=== PATIENT | female | born 1955 | race Caucasian/White ===

== ENCOUNTER → 2019-04-22 14:41 | Outpatient (BNVA) | payer MEDICARE, BC, SELFPAY | PROVIDERS: Family Provider Registered Nurse; PCP Registered Nurse; Visit Provider Anesthesiology | DX: G89.29 Other chronic pain (principal); M54.40 Lumbago with sciatica, unspecified side; G50.0 Trigeminal neuralgia; Z79.891 Long term (current) use of opiate analgesic | CPT/HCPCS: 99214 ==

== ENCOUNTER → 2019-06-10 14:45 | Outpatient (BNVA) | payer MEDICARE, BC, SELFPAY | PROVIDERS: Family Provider Registered Nurse; PCP Registered Nurse; Visit Provider Anesthesiology | DX: G89.29 Other chronic pain (principal); M54.42 Lumbago with sciatica, left side; G50.0 Trigeminal neuralgia; R68.84 Jaw pain; M79.7 Fibromyalgia; Z79.891 Long term (current) use of opiate analgesic | CPT/HCPCS: 99214 ==

== ENCOUNTER 2019-08-27 11:56 | Outpatient (CLI) | payer MEDICARE, BC, SELFPAY ==
[2019-08-27 12:21] LABS: Basophils # 0.1 10^3/uL (0.0-0.1); Basophils % 0.7 %; Eosinophils # 0.1 10^3/uL (0.0-0.8); Hematocrit 43.9 % (37.0-47.0); Hemoglobin 13.6 g/dL (11.5-15.3); Lymphocytes # 1.5 10^3/uL (0.8-4.8); Lymphocytes % 22.4 %; Mean Corpuscular Hemoglobin 28.5 pg (28.0-34.0); Mean Platelet Volume 8.6 fL (7.4-10.4); Monocytes # 0.7 10^3/uL (0.2-0.9); Monocytes % 9.8 %; Neutrophils # 4.5 10^3/uL (1.8-7.7); Neutrophils % 65.5 %; Nucleated Red Blood Cells % 0 %; Platelet Count 299 10^3/cmm (130-400); Red Blood Count 4.77 10^6/uL (4.1-5.3); Red Cell Distribution Width 12.1 % (12.1-15.1); White Blood Count 6.8 10^3/uL (4.0-10.0)
[2019-08-27 12:34] LABS: Alanine Aminotransferase 19 U/L (0-33); Albumin Level 4.5 g/dL (3.5-5.2); Alkaline Phosphatase 86 IU/L (35-105); Anion Gap 16.1 (5-19); Aspartate Amino Transferase 19 U/L (0-32); Blood Urea Nitrogen 12 mg/dL (8-23); Carbon Dioxide 27 mmol/L (22-29); Chloride 100 mmol/L (98-107); Glomerular Filtration Rate 63.2 mL/min (90-130); Glucose 106 mg/dL (65-115); Osmolality Calculated 285 mOsm/kg (285-295); Potassium 4.1 mmol/L (3.5-5.1); Sodium 139 mmol/L (136-145); Total Bilirubin 0.2 mg/dL (0.15-1.2); Total Protein 7.5 g/dL (6.6-8.7)
--- NOTE | 2019-08-27 19:51 | ONC FU_ITS ---
Dr. Govea Patient Follow-Up Note Patient: Jackie Shane Unit #: [id number]: [id number] Dicatated By: Viral Govea M.D.Date of Visit:Aug 27, 2019 Onc Med Follow-up/Prog Note Chief Complaint: Breast cancer. History of Present Illness: This is a 64 year-old woman with grade 3 infiltrating ductal carcinoma the right breast, stage IIIA (T3, pN2, M0), ER/MT positive and HER-2/tasneem positive. She had presented with a large mass in the right breast. The initial biopsy showed grade 3 infiltrating ductal carcinoma. It was ER positive at 70% and MT positive at 63%. He was positive for overexpression of HER-2/tasneem, 3+ by IHC and with amplification ratio 7.27 by FISH. She underwent right modified radical mastectomy in May of 2010. The primary tumor measured 7.7 x 3.4 cm. There was involvement in 6 of 12 axillary lymph nodes. She was given adjuvant chemotherapy with TCH. She had completed the 6 cycles of Taxotere/carboplatin as of October 2010. She completed her full year of Herceptin as of June 2011. She was also given prophylactic chest wall radiation, which she completed in December of 2010 to a total dose of 6040 cGy. In addition, she had started hormonal therapy with anastrozole in July of 2010. She tolerated it poorly and stopped within a short time because of severe depression. She restarted hormonal therapy with Aromasin in July of 2011. She opted to stop taking it in July 2016 after completing 5 years of treatment. She has had persistent fatigue and chronic pain following the chemotherapy, but thus far during followup there has been no evidence of recurrence of the breast cancer. Her other medical illnesses include asthma, GERD, and depression. She is known to have a cerebral meningioma, with which has just been monitored with observation. She is seen for a scheduled visit. She has been feeling generally. She still has some fatigue. Her energy comes and goes. Her ECOG score is 1. Her appetite is good. She has gained weight. She has not had fever. She does have hot flashes and sweating at night. She has some discomfort related to her breast. She does not complain of shortness of breath or cough, and she otherwise has not had chest pain. She continues to have acid reflux despite taking Nexium and a low-dose of metoclopramide. She uses Gaviscon as needed. Her bowel function is adequate with her bowel regimen. She has no complaints. She still has pain, and overall her back has gotten worse, but it is still managed adequately with Percocet. She has headache occasionally and she occasionally has orthostatic lightheadedness. She has developed some neuralgia on the left side of her face. She has no other focal neurologic symptoms. Medications: Benadryl 1 (25 mg) Tablet Oral at bedtime PRN, Benefiber 1 Tablet Oral daily, busPIRone HCl 1 Tablet (of 15 mg) Oral PRN, Claritin 1 Capsule Oral daily, Cymbalta 1 Tablet (of 30 mg) Capsule Delayed Release Particles Oral b.i.d., Dramamine 1 Tablet (of 50 mg) Oral PRN, Famotidine 2 Tablet (of 20 mg) Oral at bedtime, Metoclopramide HCl 1 Tablet (of 5 mg) Oral b.i.d. PRN, MiraLax 1 Powder Oral daily, Mucinex 1 (600 mg) Tablet SR 12 HR Oral daily PRN, NexIUM 1 (20 mg) Capsule Delayed Release Oral daily, Norvasc 1 (10 mg) Tablet Oral daily, Percocet 1 Tablet (of 5-325 mg) Oral t.i.d., traZODone HCl 1 Tablet (of 50 mg) Oral at bedtime PRN Allergies: Penicillins Review of Systems: Constitutional - She is generally feeling really good. Her energy comes and goes. Her appetite is good and weight is up about 8 pounds from last visit. No fevers. She is having hot flashes with sweats mainly at night. ECOG score is 1, ENMT - No sinus congestion/drainage. No mouth sores. No sore throat or difficulty swallowing, Hematologic/Lymphatic - No abnormal bruising or bleeding, Respiratory - No shortness of breath. No cough. No pleuritic pain or hemoptysis, Cardiovascular - No angina pain. No palpitations, Gastrointestinal - No nausea or vomiting. She has persistent heartburn,which wakes her up in the middle of the night. She is taking Nexium and Gaviscon for this. No diarrhea. She has constipation. This is adequetely managed with her current over the counter regimen. No blood in the stool or black stools, Genitourinary (F) - No dysuria or hematuria. No urinary frequency. No urgency or incontinence, Musculoskeletal - She continues to have pain, but it is adequately managed with her current pain medication, Integumentary - No skin complications, Neurologic - She has occasional headaches. She has dizziness with positional changes. No numbness or tingling. No other focal neurologic symptoms, Psychiatric - She has anxiety, which is managed adequately with Buspar. No depression. She has difficulty falling asleep. Vital Signs: Performed on Aug 27, 2019 13:27 Height - 62.00 in Weight - 163.2 lbs (HIGH) BSA - 1.75 sq.m BMI - 29.85 Temperature - 98.3 F (LOW) Pulse - 103 /min (HIGH) Respiration - 20 /min BP - 125/70 mm(hg) O2 Sat - 97 % Pain - 0 Physical Examination: Constitutional - She looks pretty good generally, Eyes - Sclerae nonicteric. Conjunctivae clear, ENMT - There are no lesions noted in the oral cavity, Hematologic/Lymphatic - No cervical or clavicular adenopathy, Respiratory - Lungs are clear with good air movement bilaterally, Cardiovascular - Heart rhythm is regular. There is a II/ systolic murmur. There is no gallop or rub noted, Breasts - There are no lesions noted in the right chest wall. The left breast shows no mass. There is no axillary adenopathy, Abdomen - Soft. Liver and spleen are not enlarged. There is no abdominal mass or ascites noted and there is no inguinal adenopathy, Extremities - No edema. Dorsalis pedis pulses are palpable bilaterally, Neurologic - No focal neurologic deficits noted. Lab/Imaging: Test performed on Aug 27, 2019 12:07 Sodium 139 mmol/L Potassium 4.1 mmol/L Chloride 100 mmol/L CO2 27 mmol/L Anion Gap 16.1 BUN 12 mg/dL Creatinine 0.9 mg/dL Cr Clearance (Est) 74.77 mL/min eGFR 63.2 mL/min Glucose 106 mg/dL Calcium 10.0 mg/dL Protein, Total 7.5 g/dL Albumin 4.5 g/dL Globulin 3.0 g/dL Bilirubin, Total 0.2 mg/dL ALT (SGPT) 19 U/L AST (SGOT) 19 U/L Alkaline Phosphatase 86 IU/L WBC 6.8 10 3/uL RBC 4.77 10 6/uL HGB 13.6 g/dL HCT 43.9 % MCV 92.0 fL MCH 28.5 pg MCHC 31.0 g/dL RDW 12.1 % Platelet Count 299 10 3/cmm MPV 8.6 fL Neutrophils 4.5 10 3/uL Lymphocytes 1.5 10 3/uL Monocytes 0.7 10 3/uL Eosinophils 0.1 10 3/uL Basophils 0.1 10 3/uL Neutrophil % 65.5 % Lymphocyte % 22.4 % Monocyte % 9.8 % Eosinophil % 1.0 % Basophils % 0.7 % NRBC % 0 % Impression: 1. Patient with grade 3 infiltrating ductal carcinoma the right breast, stage IIIA, ER/MT positive and HER-2/tasneem positive. 2. She underwent right modified radical mastectomy in May 2010 followed by adjuvant chemotherapy with 6 cycles of TCH, completed in October 2010. She completed a full year of Herceptin in June 2011. 3. She was given prophylactic chest wall radiation, completed in December 2010 to a total dose of 6040 cGy. 4. She had poor tolerance for adjuvant hormonal therapy with anastrozole, which began in July 2010. 5. As of July 2011 she restarted hormonal therapy with Aromasin 25 mg daily. It was stopped in July 2016 after completing 5 years of treatment. She had multiple complaints following the chemotherapy, the most significant being persistent fatigue and neuropathy. During follow-up she has had some degree of chronic fatigue and chronic pain. Over time she has shown some gradual improvement, and her symptoms now do seem to be adequately managed with her current medications. Overall, she appears to be doing well clinically with no evidence of recurrence of the breast cancer. Plan: She remains on observation/expectant management for the breast cancer. I will see her again in 1 year. Signed By: Viral Govea M.D. <<Signature on File>>
== END 2019-08-27 11:57 | disposition home or self-care (01) ==
LOC: ONCMED 12:00
PROVIDERS: PCP Registered Nurse; Visit Provider Internal Medicine Medical Oncology
DX: Z08 Encounter for follow-up examination after completed treatment for malignant neoplasm (principal); Z85.3 Personal history of malignant neoplasm of breast; E55.9 Vitamin D deficiency, unspecified; Z79.890 Hormone replacement therapy; Z92.21 Personal history of antineoplastic chemotherapy; Z92.3 Personal history of irradiation
CPT/HCPCS: 36415; 80053; 85025; G0463

== ENCOUNTER 2019-09-02 13:59 | Outpatient (CLI) | payer MEDICARE, BC, SELFPAY ==
--- NOTE | 2019-09-02 14:10 | MM_ITS ---
WS: [id number] Left breast diagnostic digital mammogram, 09/02/2019 Clinical Data: HX OF BREAST CA Comparison: 03/14/2018, 03/09/2017, 03/03/2016, 03/14/2015, 01/26/2014, 01/23/2013, 12/29/2011, 2010, 05/31/2010, 03/04/2010. Findings: No spiculated masses or clustered calcifications are seen. There are no secondary signs of carcinoma. The breast parenchymal pattern shows heterogeneous density. MM/[place] [id number] Impression: Negative left breast mammogram unchanged. BIRADS: 1-Negative FOLLOW UP: 1 Year Follow-up The CAD broadcast checker was used.
== END 2019-09-02 14:00 | disposition home or self-care (01) ==
LOC: RADSHAW 14:07
PROVIDERS: PCP Registered Nurse; Visit Provider Internal Medicine Medical Oncology
DX: Z85.3 Personal history of malignant neoplasm of breast (principal)
CPT/HCPCS: 77065

== ENCOUNTER → 2019-10-10 10:28 | Outpatient (BNVA) | payer MEDICARE, BC, SELFPAY | PROVIDERS: Family Provider Registered Nurse; PCP Registered Nurse; Visit Provider Anesthesiology | DX: G89.29 Other chronic pain (principal); M54.42 Lumbago with sciatica, left side; Z79.891 Long term (current) use of opiate analgesic | CPT/HCPCS: 99213; 99214 ==

== ENCOUNTER → 2019-12-26 08:08 | Outpatient (BNVA) | payer MEDICARE, BC, SELFPAY | PROVIDERS: Family Provider Registered Nurse; PCP Registered Nurse; Visit Provider Anesthesiology | DX: G89.29 Other chronic pain (principal); M54.41 Lumbago with sciatica, right side; M54.42 Lumbago with sciatica, left side; Z79.891 Long term (current) use of opiate analgesic; Z79.1 Long term (current) use of non-steroidal anti-inflammatories (NSAID) | CPT/HCPCS: 99212; 99214 ==

== ENCOUNTER → 2020-02-19 10:55 | Outpatient (BNVA) | payer MEDICARE, BC, SELFPAY | PROVIDERS: Family Provider Registered Nurse; PCP Registered Nurse; Visit Provider Anesthesiology | DX: G89.29 Other chronic pain (principal); M54.41 Lumbago with sciatica, right side; M54.42 Lumbago with sciatica, left side; Z79.891 Long term (current) use of opiate analgesic; Z79.1 Long term (current) use of non-steroidal anti-inflammatories (NSAID) | CPT/HCPCS: 99212; 99214 ==

== ENCOUNTER → 2020-04-01 14:17 | Outpatient (BNVA) | payer MEDICARE, BC, SELFPAY | PROVIDERS: PCP Registered Nurse; Visit Provider Surgery | DX: Z11.59 Encounter for screening for other viral diseases (principal); Z12.11 Encounter for screening for malignant neoplasm of colon | CPT/HCPCS: 87635 ==

== ENCOUNTER 2020-04-08 07:00 | Day surgery (SDC) | payer MEDICARE, BC, SELFPAY ==
[2020-04-05 13:32] VITALS: BMI 29.2
--- NOTE | 2020-04-08 07:24 | ANES.PREANE2 ---
Pre-Anesthetic Assessment Pre-Anesthetic Assessment: Height/Weight: Height 1.57 m Weight 72.575 kg Preop Diagnosis: Screening colonoscopy Proposed Procedure: Operation Date: 04/08/20 08:00 Proposed Procedures p Colonoscopy 78029 Z12.11(Not Applicable) - Umesh Egan MD Was Beta Marcelino taken within 24 hours: N/A Last intake: Intake Last Liquid Date 04/07/20 Last Liquid Time 20:00 Last Solid Date 04/06/20 Last Solid Time 20:00 Social: Social History: No alcohol and No tobacco Exam: Pre-Anes Outpt Exam: alert, oriented x 3, clear to auscultation bilaterally and regular rate & rhythm Airway: Submandibular: WNL Cervical ROM: WNL Dentition: Full History/ROS: No significant history except as noted and No significant complaints Pulmonary: Pulmonary: None reported CV/HEM: CV/HEM: HTN : : None reported Hepatic: Hepatic: None reported GI: GI: GERD Metabolic: Metabolic: None reported Musc/skel: Musc/skel: Lower Back Pain and OA/DJD Neuropsych: Neuropsych: Anxiety and None reported Anesthetic Plan: ASA status: 2 Anesthesia: Anesthesia Evaluation and MAC Risk of > 500 ml blood loss (7ml/kg in children): No PFSH Anesthesia PFSH: Medical History (Updated 02/26/20 @ 08:21 by JAMES Victoria) Chronic low back pain with sciatica Depression with anxiety Encounter for long-term (current) use of NSAIDs Encounter for long-term use of opiate analgesic Encounter for screening colonoscopy GERD without esophagitis Insomnia Nondiabetic gastroparesis Trigeminal neuralgia of left side of face Surgical History S/P appendectomy S/P cholecystectomy S/P right mastectomy Social History Smoking and tobacco status: never smoked Second hand smoke exposure: Yes Alcohol intake: never History of recent travel: No Data Anesthesia Cardiac Studies: No Data to Display
--- NOTE | 2020-04-08 07:26 | W.PM.OPSFHP ---
Same Day Surgery H&P Indication for Procedure/HPI DATE OF PROCEDURE: April 08, 2020 CHIEF COMPLAINT/INDICATIONFOR SURGICAL PROCEDURE: Screening colonoscopy PREOP DIAGNOSIS: Screening colonoscopy PLANNED PROCEDRUE: Operation Date: 04/08/20 08:00 Proposed Procedures p Colonoscopy 93447 Z12.11(Not Applicable) - Umesh Egan MD This is a pleasant 64 years old female patient referred to my practice for screening colonoscopy. Patient had one before 10 years and was reported as normal.She denies any bleeding per rectum or nonintentional weight loss. Patient reports to me when I asked her that she had her grandmother had history of colon cancer around the age of 7070 years old. ROS All systems have been reviewed negative except for HPI and per problem list Medications/Allergies* Home Medications Medication Instructions Recorded Confirmed Type polyethylene glycol 3350 17 17 gm PO QDAY PRN 04/14/19 04/05/20 History gram/dose oral powder sennosides 8.6 mg-docusate sodium 3 tab-cap PO QDAY PRN 04/14/19 04/05/20 History 50 mg capsule famotidine 40 mg tablet 40 mg PO QDAY 04/16/19 04/05/20 History esomeprazole magnesium 20 mg 20 mg PO DAILY 01/12/20 04/05/20 History capsule,delayed release dimenhydrinate 50 mg tablet 50 mg PO .hs tab 02/25/20 04/05/20 History melatonin 3 mg tablet,extended 3 mg PO BEDTIME 02/25/20 04/05/20 History release Allergies/Adverse Reactions Allergy/AdvReac Type Severity Reaction Status Date / Time Penicillins Allergy Mild swelling Verified 04/08/20 07:27 and rash Pertinent History/Comorbid Conditions* Medical History (Updated 02/26/20 @ 08:21 by JAMES Victoria) Chronic low back pain with sciatica Depression with anxiety Encounter for long-term (current) use of NSAIDs Encounter for long-term use of opiate analgesic Encounter for screening colonoscopy GERD without esophagitis Insomnia Nondiabetic gastroparesis Trigeminal neuralgia of left side of face Surgical History (Updated 04/22/19 @ 16:24 by Klever Lam MD) S/P appendectomy S/P cholecystectomy S/P right mastectomy Social History Smoking and tobacco status: never smoked Second hand smoke exposure: Yes Alcohol intake: never History of recent travel: No Pertinent Exam Findings alert, oriented x 3, clear to auscultation bilaterally, regular rate & rhythm and procedure specific exam findings (Abdominal examination nontender nondistended soft) Recommendations Surgery/Procedure today (Colonoscopy with possible biopsy and possible polypectomy. Informed consent per chart) Coding Level of Care Code Acute Chief Operator for Jessica Kelley
[2020-04-08 07:27] VITALS: BP 122/90; PULSE 99; RESP 18; TEMP 36.6; O2SAT 95
[2020-04-08] MEDS: sodium chloride 0.9% 1,000 ML 30 ML IV (07:33)
[2020-04-08 08:12] VITALS: BP 127/74; PULSE 75; RESP 16; TEMP 36.6; O2SAT 95
[2020-04-08 08:31] VITALS: BP 127/85; PULSE 79; RESP 16; O2SAT 95
--- NOTE | 2020-04-08 14:45 | ANE.PACU2 ---
Inpatient post-anesthesia follow up: Airway intact: Yes Vital signs: Temperature 98 F Pulse Rate 79 Respiratory Rate 16 Blood Pressure 127/85 Pulse Oximetry 95 Oxygen Delivery Me thod Room Air Oxygen Flow Rate Fraction of Inspir ed Oxygen Hydration adequate: Yes Nausea and vomiting: No Pain level: 1 Mental status: Baseline
== END 2020-04-08 08:36 | disposition home or self-care (01) ==
PROVIDERS: PCP Registered Nurse; Visit Provider Surgery
PROC: 0DJD8ZZ Inspection of Lower Intestinal Tract, Via Natural or Artificial Opening Endoscopic (ICD-10-PCS; CPT 45378; principal; 2020-04-08 08:00)
DX: Z12.11 Encounter for screening for malignant neoplasm of colon (principal); K57.30 Diverticulosis of large intestine without perforation or abscess without bleeding; F41.8 Other specified anxiety disorders; K21.9 Gastro-esophageal reflux disease without esophagitis; Z79.1 Long term (current) use of non-steroidal anti-inflammatories (NSAID); Z79.891 Long term (current) use of opiate analgesic; G89.29 Other chronic pain; M54.5 Low back pain; I10 Essential (primary) hypertension; M19.90 Unspecified osteoarthritis, unspecified site
CPT/HCPCS: 12345; G0121; J2704; J7030

== ENCOUNTER → 2020-04-23 10:53 | Outpatient (BNVA) | payer MEDICARE, BC, SELFPAY | PROVIDERS: PCP Registered Nurse; Visit Provider Anesthesiology | DX: G89.29 Other chronic pain (principal); M54.41 Lumbago with sciatica, right side; R68.84 Jaw pain; G50.0 Trigeminal neuralgia; Z79.1 Long term (current) use of non-steroidal anti-inflammatories (NSAID); Z79.891 Long term (current) use of opiate analgesic | CPT/HCPCS: 99213 ==

== ENCOUNTER → 2020-04-30 10:17 | Outpatient (BNVA) | payer MEDICARE, BC, SELFPAY | PROVIDERS: PCP Registered Nurse; Visit Provider Anesthesiology | DX: Z79.1 Long term (current) use of non-steroidal anti-inflammatories (NSAID) (principal); K31.84 Gastroparesis; K21.9 Gastro-esophageal reflux disease without esophagitis | CPT/HCPCS: 80048 ==

== ENCOUNTER → 2020-07-07 10:46 | Outpatient (BNVA) | payer MEDICARE, BC, SELFPAY | PROVIDERS: PCP Registered Nurse; Visit Provider Nurse Practitioner | DX: G89.29 Other chronic pain (principal); M54.41 Lumbago with sciatica, right side; M54.42 Lumbago with sciatica, left side; D18.02 Hemangioma of intracranial structures; G50.0 Trigeminal neuralgia; Z79.1 Long term (current) use of non-steroidal anti-inflammatories (NSAID); Z79.891 Long term (current) use of opiate analgesic | CPT/HCPCS: 99214 ==

== ENCOUNTER 2020-07-19 12:59 | Outpatient (CLI) | payer MEDICARE, BC, SELFPAY ==
--- NOTE | 2020-07-19 13:00 | MR_ITS ---
WS: [id number] MRI LUMBAR SPINE NONCONTRAST TECHNIQUE: Sagittal T1, T2 and STIR imaging. Axial T1 and T2 imaging. CLINICAL INFORMATION: M54.40 - Lumbago with sciatica, unspecified side COMPARISON: MRI 2016 FINDINGS: Mild lumbar curve. No acute compression. No high-grade central canal stenosis. Slight anterolisthesis L4 on L5 is unchanged. Mild annular bulging L3-L4 and L4-L5. L1-L2: Normal. L2-L3: No significant disc bulging. Mild facet arthropathy. Spinal canal and foramen are patent. L3-L4: Mild annular bulging with slight effacement of ventral thecal sac. Slight narrowing of the rig ht subarticular recess. Foramen are patent. Mild facet arthropathy. L4-L5: Mild annular bulging with mild central canal stenosis. Narrowing of the subarticular recess bi laterally. Encroachment traversing L5 nerve roots. Moderate facet arthropathy. Foramen are patent. L5-S1: Tiny shallow central herniation. Spinal canal and foramen are patent. Moderate facet arthropat hy. Visualized pelvic bony structures: Normal. Paravertebral soft tissues: Normal. MR/MR lumbar spine wo con* [id number] IMPRESSION: 1. Mild lumbar curve. No acute compression. Stable slight anterolisthesis L4 o n L5. 2. Mild annular bulging L4-5 with mild central canal stenosis. Slight impingem ent traversing L5 nerve roots bilaterally. This is stable compared to 2017. 3. Mild annular bulging L3-4 with slight narrowing of the subarticular recess. Spinal canal and foramen are patent. 4. Moderate facet arthropathy L4-L5 and L5-S1. 5. Overall no significant changes since 2017.
--- NOTE | 2020-07-19 13:45 | MR_ITS ---
WS: [id number] MRI HEAD WITHOUT CONTRAST TECHNIQUE: Sagittal T1, T2 axial, T2 axial FLAIR, axial and coronal T1 images, axial susceptibility w eighted imaging, axial diffusion weighted images, and coronal T2 images were obtained. 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 Ventricular system and basal cisterns are patent. Moderate small vessel changes with mild parenchymal volume loss. Small vessel changes in the marcy. Normal posterior fossa. Normal vascular flow voids at the skull base. No extra-axial fluid collections. Paranasal sinuses and mastoid air cells well aerated. Normal optic chiasm and pituitary infundibulum. Mild symmetric atrophy involving the temporal lobes a nd hippocampal formations. Normal cavernous sinuses and Meckel's cave. No hemosiderin on susceptibly weighted images. Stable calcified right parasagittal occipital meningio ma appears unchanged considering lack of IV contrast. No underlying edema. Meningioma measures approx imately 14 x 12 mm not significantly changed. Associated adjacent narrowing of the sagittal sinus christian ears stable compared to previous MR/MR head wo con* [id number] IMPRESSION: 1. Stable right parasagittal occipital calcified meningioma with stable adjace nt narrowing of the sagittal sinus. No underlying edema in the occipital lobe. No evidence of progression 2. No evidence of restricted diffusion to suggest acute ischemia. 3. Moderate small vessel changes with mild parenchymal volume loss. Small vess el changes slightly progressed since 2010. 4. No hemosiderin on susceptibly weighted images. 5. No other significant changes compared to previous.
== END 2020-07-19 13:00 | disposition home or self-care (01) ==
PROVIDERS: PCP Registered Nurse; Visit Provider Nurse Practitioner
DX: D18.02 Hemangioma of intracranial structures (principal); M54.40 Lumbago with sciatica, unspecified side; M47.816 Spondylosis without myelopathy or radiculopathy, lumbar region; M47.817 Spondylosis without myelopathy or radiculopathy, lumbosacral region; M51.26 Other intervertebral disc displacement, lumbar region
CPT/HCPCS: 70551; 72148

== ENCOUNTER → 2020-07-29 14:42 | Outpatient (BNVA) | payer MEDICARE, BC, SELFPAY | PROVIDERS: PCP Registered Nurse; Visit Provider Registered Nurse | DX: Z01.419 Encounter for gynecological examination (general) (routine) without abnormal findings (principal); R30.0 Dysuria | CPT/HCPCS: 81000; 87070; 87205; 88175 ==

== ENCOUNTER → 2020-09-02 13:48 | Outpatient (BNVA) | payer MEDICARE, BC, SELFPAY | PROVIDERS: PCP Registered Nurse; Visit Provider Nurse Practitioner | DX: G89.29 Other chronic pain (principal); M54.41 Lumbago with sciatica, right side; G50.0 Trigeminal neuralgia; Z79.1 Long term (current) use of non-steroidal anti-inflammatories (NSAID); Z79.891 Long term (current) use of opiate analgesic | CPT/HCPCS: 99215 ==

== ENCOUNTER → 2020-11-10 12:30 | Outpatient (BNVA) | payer MEDICARE, BC, SELFPAY | PROVIDERS: PCP Registered Nurse; Visit Provider Anesthesiology | DX: G89.29 Other chronic pain (principal); M54.42 Lumbago with sciatica, left side; M54.41 Lumbago with sciatica, right side; Z79.1 Long term (current) use of non-steroidal anti-inflammatories (NSAID); Z79.891 Long term (current) use of opiate analgesic | CPT/HCPCS: 99213 ==

== ENCOUNTER 2020-11-17 10:46 | Outpatient (CLI) | payer MEDICARE, BC, SELFPAY ==
--- NOTE | 2020-11-17 10:52 | MM_ITS ---
WS: [id number] DIAGNOSTIC LEFT DIGITAL MAMMOGRAM WITH CAD HISTORY: HX OF BREAST Ca; rt MASTECTOMY COMPARISON: 09/02/2019, 03/09/2017 Technique: CC, MLO and ML views. Breast composition: The breasts are heterogeneously dense, which may obscure small masses. Increasin g density and asymmetry in the superior posterior LEFT breast. This may be superimposed fibroglandula r tissue. Additional benign calcifications. MM/[place] [id number] IMPRESSION: BI-RADS: 0-Incomplete: Need additional imaging evaluation FOLLOW UP: Need Additional Imaging LEFT breast: Spot compression views (CC and MLO). True ML. Ultrasound to follow if abnormality persists.
== END 2020-11-17 10:47 | disposition home or self-care (01) ==
LOC: RADSHAW 10:50
PROVIDERS: PCP Registered Nurse; Visit Provider Internal Medicine Medical Oncology
DX: Z85.3 Personal history of malignant neoplasm of breast (principal)
CPT/HCPCS: 77065

== ENCOUNTER 2020-11-25 14:40 | Outpatient (CLI) | payer MEDICARE, BC, SELFPAY ==
--- NOTE | 2020-11-25 14:50 | US_ITS ---
WS: [id number] ADDITIONAL VIEWS LEFT MAMMOGRAM LEFT BREAST ULTRASOUND HISTORY: ABNORMAL FINDINGS IN LT BREAST COMPARISON: 11/17/2020, 09/02/2019 and 07/13/2017 LEFT MAMMOGRAM: Spot compression views and true ML. Dense asymmetry persists in the superior LEFT breast. No discrete mass identified. Ultrasound will be performed to exclude underlying mass. This may all be superimposed fibroglandular tissue. LEFT BREAST ULTRASOUND 2-D and color Doppler imaging submitted. Ultrasound directed to the upper outer quadrant of the LEFT breast. No discrete mass or shadowing. No solid or cystic changes. There is very dense fibroglandular tissue which is a normal parenchymal pat tern. US/US breast LT limited* [id number] IMPRESSION: BI-RADS: 2-Benign FOLLOW UP: 1 Year Follow-up
== END 2020-11-25 14:41 | disposition home or self-care (01) ==
PROVIDERS: PCP Registered Nurse; Visit Provider Internal Medicine Medical Oncology
DX: R92.8 Other abnormal and inconclusive findings on diagnostic imaging of breast (principal)
CPT/HCPCS: 76642; 77065

== ENCOUNTER 2020-12-20 14:19 | Outpatient (CLI) | payer MEDICARE, BC, SELFPAY ==
--- NOTE | 2020-12-20 19:23 | ONC FU_ITS ---
Dr. Govea Patient Follow-Up Note Patient: Jackie Shane Unit #: [id number]: 1955 Dicatated By: Viral Govea M.D.Date of Visit:Dec 20, 2020 Onc Med Follow-up/Prog Note Chief Complaint: Breast cancer. History of Present Illness: This is a 65 year-old woman with grade 3 infiltrating ductal carcinoma the right breast, stage IIIA (T3, pN2, M0), ER/KS positive and HER-2/tasneem positive. She had presented with a large mass in the right breast. The initial biopsy showed grade 3 infiltrating ductal carcinoma. It was ER positive at 70% and KS positive at 63%. He was positive for overexpression of HER-2/tasneem, 3+ by IHC and with amplification ratio 7.27 by FISH. She underwent right modified radical mastectomy in May of 2010. The primary tumor measured 7.7 x 3.4 cm. There was involvement in 6 of 12 axillary lymph nodes. She was given adjuvant chemotherapy with TCH. She had completed the 6 cycles of Taxotere/carboplatin as of October 2010. She completed her full year of Herceptin as of June 2011. She was also given prophylactic chest wall radiation, which she completed in December of 2010 to a total dose of 6040 cGy. In addition, she had started hormonal therapy with anastrozole in July of 2010. She tolerated it poorly and stopped within a short time because of severe depression. She restarted hormonal therapy with Aromasin in July of 2011. She opted to stop taking it in July 2016 after completing 5 years of treatment. She has had persistent fatigue and chronic pain following the chemotherapy, but thus far during followup there has been no evidence of recurrence of the breast cancer. Her other medical illnesses include asthma, GERD, and depression. She is known to have a cerebral meningioma, with which has just been monitored with observation. She is seen for a scheduled visit. She has been feeling pretty good generally. She says her energy comes and goes. She is able to do light work. ECOG score is 1. She has good appetite. She has not had fever or night sweats. She still has hot flashes a little bit at night. She has allergy related sinus drainage. She has not had sore mouth or throat. She does not complain of cough. She has mild discomfort in the chest wall on both sides. She otherwise does not have chest pain. Her acid reflux is adequately managed with Nexium in the morning and Pepcid at bedtime. She has chronic constipation. She has had some mild hesitancy with urination. She has chronic pain. It is managed adequately with Percocet, which she has been able to gradually taper. She has headache only rarely. She occasionally has orthostatic lightheadedness. 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 She has anxiety/depression, but it is adequately managed with medication. Medications: Benadryl 1 (25 mg) Tablet Oral at bedtime PRN, Benefiber 1 Tablet Oral daily, busPIRone HCl 1 Tablet (of 15 mg) Oral PRN, Claritin 1 Capsule Oral daily, Cymbalta 1 Tablet (of 30 mg) Capsule Delayed Release Particles Oral b.i.d., Dramamine 1 Tablet (of 50 mg) Oral PRN, Famotidine 2 Tablet (of 20 mg) Oral at bedtime, Metoclopramide HCl 1 Tablet (of 5 mg) Oral b.i.d. PRN, MiraLax 1 Powder Oral daily, Mucinex 1 (600 mg) Tablet SR 12 HR Oral daily PRN, NexIUM 1 (20 mg) Capsule Delayed Release Oral daily, Norvasc 1 (10 mg) Tablet Oral daily, Percocet 1 Tablet (of 5-325 mg) Oral t.i.d., traZODone HCl 1 Tablet (of 50 mg) Oral at bedtime PRN Allergies: Penicillins Vital Signs: Performed on Dec 20, 2020 14:50 Height - 62.00 in Weight - 171.8 lbs (HIGH) BSA - 1.79 sq.m BMI - 31.42 (HIGH) Temperature - 97.6 F (LOW) Pulse - 67 /min Respiration - 18 /min BP - 118/70 mm(hg) O2 Sat - 96 % Pain - 0 Fatigue - 0 Physical Examination: Constitutional - She looks pretty good generally, Eyes - Sclerae nonicteric. Conjunctivae clear, ENMT - There are no lesions noted in the oral cavity, Hematologic/Lymphatic - No cervical or clavicular adenopathy, Respiratory - Lungs are clear with good air movement bilaterally, Cardiovascular - Heart rhythm is regular. There is a II/ systolic murmur. There is no gallop or rub noted, Breasts - There are no lesions noted in the right chest wall. The left breast shows no mass. There is no axillary adenopathy, Abdomen - Soft. Liver and spleen are not enlarged. There is no abdominal mass or ascites noted and there is no inguinal adenopathy, Extremities - No edema. Dorsalis pedis pulses are palpable bilaterally, Neurologic - No focal neurologic deficits noted. Problem List: 1. Grade 3 infiltrating ductal carcinoma the right breast, stage IIIA, ER/KS positive and HER-2/tasneem positive. 2. She had persistent fatigue and neuropathy following adjuvant chemotherapy. 3. Asthma. 4. GERD. 5. Anxiety/depression. Problems Addressed with this Encounter and Plan: Patient with grade 3 infiltrating ductal carcinoma the right breast, stage IIIA, ER/KS positive and HER-2/tasneem positive. She underwent right modified radical mastectomy in May 2010 followed by adjuvant chemotherapy with 6 cycles of TCH, completed in October 2010. She completed a full year of Herceptin in June 2011. She was given prophylactic chest wall radiation, completed in December 2010 to a total dose of 6040 cGy. She had poor tolerance for adjuvant hormonal therapy with anastrozole, which began in July 2010. As of July 2011 she restarted hormonal therapy with Aromasin 25 mg daily. It was stopped in July 2016 after completing 5 years of treatment. During follow-up she has had chronic fatigue and chronic pain, at least some component of which has been due to persistent neuropathy from the chemotherapy. She is now 10 years out from completion of chemotherapy with no evidence of recurrence of the breast cancer. She will now continue regular followup with Hayden Gomez. She should continue to have surveillance unilateral left diagnostic mammogram on a yearly basis. I will see her again only as needed. Signed By: Viral Govea M.D. <<Signature on File>>
== END 2020-12-20 14:20 | disposition home or self-care (01) ==
LOC: ONCMED 14:22
PROVIDERS: PCP Registered Nurse; Visit Provider Internal Medicine Medical Oncology
DX: Z08 Encounter for follow-up examination after completed treatment for malignant neoplasm (principal); Z85.3 Personal history of malignant neoplasm of breast; K21.9 Gastro-esophageal reflux disease without esophagitis; J45.909 Unspecified asthma, uncomplicated; F41.9 Anxiety disorder, unspecified; F32.9 Major depressive disorder, single episode, unspecified
CPT/HCPCS: G0463

== ENCOUNTER → 2021-01-18 09:42 | Outpatient (BNVA) | payer MEDICARE, BC, SELFPAY | PROVIDERS: PCP Registered Nurse; Visit Provider Anesthesiology | DX: G89.29 Other chronic pain (principal); M54.40 Lumbago with sciatica, unspecified side; G50.0 Trigeminal neuralgia; Z79.891 Long term (current) use of opiate analgesic; Z79.1 Long term (current) use of non-steroidal anti-inflammatories (NSAID) | CPT/HCPCS: 99214 ==

== ENCOUNTER → 2021-02-17 10:17 | Outpatient (BNVA) | payer MEDICARE, BC, SELFPAY | PROVIDERS: PCP Registered Nurse; Visit Provider Anesthesiology | DX: Z51.81 Encounter for therapeutic drug level monitoring (principal); Z79.1 Long term (current) use of non-steroidal anti-inflammatories (NSAID) | CPT/HCPCS: 80048 ==

== ENCOUNTER → 2021-03-15 10:40 | Outpatient (BNVA) | payer MEDICARE, BC, SELFPAY | PROVIDERS: PCP Registered Nurse; Visit Provider Anesthesiology | DX: G89.29 Other chronic pain (principal); M54.40 Lumbago with sciatica, unspecified side; G50.0 Trigeminal neuralgia; Z79.891 Long term (current) use of opiate analgesic | CPT/HCPCS: 99213; 99214 ==

== ENCOUNTER → 2021-07-22 11:51 | Outpatient (BNVA) | payer MEDICARE, BC, SELFPAY | PROVIDERS: PCP Registered Nurse; Visit Provider Registered Nurse | DX: Z13.6 Encounter for screening for cardiovascular disorders (principal); Z78.9 Other specified health status; Z71.3 Dietary counseling and surveillance | CPT/HCPCS: 80053; 80061; 85025 ==

== ENCOUNTER 2022-01-02 11:09 | Outpatient (CLI) | payer MEDICARE, BC, SELFPAY ==
--- NOTE | 2022-01-02 11:56 | MM_ITS ---
WS: [id number] LEFT DIAGNOSTIC DIGITAL TOMOSYNTHESIS MAMMOGRAPHY WITH CAD. HISTORY: HX OF BREAST CA COMPARISON: 11/25/2020, 09/02/2019 and 03/14/2018 Technique: CC, MLO and ML views. Breast composition: The breasts are heterogeneously dense, which may obscure small masses. Asymmetri es are stable. Benign calcifications in the LEFT breast. MM/[place] [id number] IMPRESSION: BI-RADS: 2-Benign FOLLOW UP: 1 Year Follow-up
== END 2022-01-02 11:10 | disposition home or self-care (01) ==
LOC: RAD 11:10
PROVIDERS: PCP Registered Nurse; Visit Provider Registered Nurse
DX: Z85.3 Personal history of malignant neoplasm of breast (principal)
CPT/HCPCS: 77061

== ENCOUNTER → 2022-06-27 10:51 | Outpatient (BNVA) | payer MEDICARE, BC, SELFPAY | PROVIDERS: PCP Registered Nurse; Visit Provider Registered Nurse | DX: L98.9 Disorder of the skin and subcutaneous tissue, unspecified (principal) | CPT/HCPCS: 88305 ==

== ENCOUNTER → 2022-08-29 11:31 | Outpatient (BNVA) | payer MEDICARE, BC, SELFPAY | PROVIDERS: PCP Registered Nurse; Visit Provider Registered Nurse | DX: Z00.00 Encounter for general adult medical examination without abnormal findings (principal); F41.8 Other specified anxiety disorders; I10 Essential (primary) hypertension; Z13.6 Encounter for screening for cardiovascular disorders; Z79.891 Long term (current) use of opiate analgesic | CPT/HCPCS: 80053; 80061; 83036; 84443; 85025 ==

== ENCOUNTER 2022-12-19 10:39 | Outpatient (CLI) | payer MEDICARE, BC, SELFPAY ==
--- NOTE | 2022-12-19 11:30 | US_ITS ---
WS: [id number] DIAGNOSTIC DIGITAL TOMOSYNTHESIS MAMMOGRAPHY WITH CAD. LEFT breast ultrasound, limited. HISTORY: N64.4 - Mastodynia COMPARISON: 01/02/2022, 11/17/2020 and 09/02/2019 Technique: CC, MLO and ML views. Spot compression LEFT CC. Breast composition: The breasts are heterogeneously dense, which may obscure small masses. Increased density asymmetry in the upper outer quadrant of the LEFT breast is similar to prior studies. There i s no distortion. There are a few scattered calcifications. No significant abnormality is noted in the pain area indicated by the patient. LEFT breast ultrasound, limited. LEFT breast ultrasound is directed to the area of pain by the patient. This is most significant aroun d the 3-4 o'clock axis. There is no mass or shadowing. There is very dense fibroglandular breast tiss ue. IMPRESSION: US/US breast LT limited* [id number] BI-RADS: 2-Benign FOLLOW UP: 1 Year Follow-up
--- NOTE | 2022-12-19 11:50 | MM_ITS ---
WS: [id number] DIAGNOSTIC DIGITAL TOMOSYNTHESIS MAMMOGRAPHY WITH CAD. LEFT breast ultrasound, limited. HISTORY: N64.4 - Mastodynia COMPARISON: 01/02/2022, 11/17/2020 and 09/02/2019 Technique: CC, MLO and ML views. Spot compression LEFT CC. Breast composition: The breasts are heterogeneously dense, which may obscure small masses. Increased density asymmetry in the upper outer quadrant of the LEFT breast is similar to prior studies. There i s no distortion. There are a few scattered calcifications. No significant abnormality is noted in the pain area indicated by the patient. LEFT breast ultrasound, limited. LEFT breast ultrasound is directed to the area of pain by the patient. This is most significant aroun d the 3-4 o'clock axis. There is no mass or shadowing. There is very dense fibroglandular breast tiss ue. IMPRESSION: MM/[place] [id number] BI-RADS: 2-Benign FOLLOW UP: 1 Year Follow-up
== END 2022-12-19 10:40 | disposition home or self-care (01) ==
LOC: RAD 10:42
PROVIDERS: PCP Registered Nurse; Visit Provider Registered Nurse
DX: N64.4 Mastodynia (principal)
CPT/HCPCS: 76642; 77061; G0279

== ENCOUNTER → 2023-03-01 11:29 | Outpatient (BNVA) | payer MEDICARE, BC, SELFPAY | PROVIDERS: PCP Registered Nurse; Visit Provider Nurse Practitioner Family | DX: L57.0 Actinic keratosis (principal); L57.8 Other skin changes due to chronic exposure to nonionizing radiation; D22.62 Melanocytic nevi of left upper limb, including shoulder; L81.4 Other melanin hyperpigmentation | CPT/HCPCS: 17000; 99213 ==

== ENCOUNTER → 2023-05-08 10:32 | Outpatient (BNVA) | payer MEDICARE, BC, SELFPAY | PROVIDERS: PCP Registered Nurse; Referring Provider Podiatrist Foot & Ankle Surgery; Visit Provider Psychiatry & Neurology Neurology | DX: R25.1 Tremor, unspecified (principal); D32.0 Benign neoplasm of cerebral meninges; R51.9 Headache, unspecified; G50.0 Trigeminal neuralgia | CPT/HCPCS: 99203 ==

== ENCOUNTER 2023-06-01 10:43 | Outpatient (CLI) | payer MEDICARE, BC, SELFPAY ==
--- NOTE | 2023-06-01 11:00 | MR_ITS ---
WS: [email or web address] MRA HEAD TECHNIQUE: Axial 3-D TOF images obtained with axial images and axial, sagittal, and coronal 2-D refor matted images. CLINICAL INFORMATION: R25.1 - Tremor, unspecified COMPARISON: MRI 07/19/2020 FINDINGS: LEFT dominant distal vertebral artery. Basilar artery is patent. Normal vascularity to the [employer] territ ory bilaterally. Both ICAs are patent at the skull base. Normal vascularity to the JUD and MCA territories bilaterally . No evidence of high-grade proximal stenosis or aneurysm. RIGHT parasagittal occipital meningioma which abuts the sagittal sinus described on the concurrent MR I head. IMPRESSION: 1. Normal intracranial MRA. 2. No evidence of proximal flow-limiting stenosis or aneurysm. 3. RIGHT parasagittal occipital meningioma which abuts the sagittal sinus described on the concurren t MRI head.
--- NOTE | 2023-06-01 11:15 | MR_ITS ---
WS: [email or web address] MRI HEAD WITH CONTRAST TECHNIQUE: Sagittal T1, T2 axial, T2 axial FLAIR, axial susceptibility weighted imaging, axial diffus ion weighted images, and coronal T2 images were obtained. Pre and post-T1 axial and post T1 coronal i mages. ADC and FSPGR images. CLINICAL INFORMATION: D32.0 - Benign neoplasm of cerebral meninges COMPARISON: MRI 07/19/2020 FINDINGS: Again seen is the RIGHT parasagittal occipital enhancing meningioma abutting the sagittal sinus. Toda y this measures approximately 1.3 x 1.4 x 1.7 cm AP by transverse by craniocaudal. This abuts the sag ittal sinus with mild narrowing similar to previous. Sagittal sinus remains patent. No evidence of restricted diffusion to suggest acute ischemia. Ventricular system and basal cisterns are patent. Moderate small vessel changes. Mild parenchymal volume loss. Normal posterior fossa. Norm al vascular flow voids at the skull base. No extra-axial fluid collections. Paranasal sinuses are well aerated. Normal posterior nasopharynx. Mastoid air cells are well aerated. No hemosiderin on the susceptibly weighted images. Normal optic chiasm and pituitary infundibulum. T emporal lobes and hippocampal formations are normal in appearance. IMPRESSION: 1. Previously described RIGHT parasagittal occipital meningioma appears unchanged compared to 07/20/19 21. No significant surrounding edema. 2. Stable mild narrowing of the adjacent sagittal sinus which remains patent. 3. Moderate small vessel changes with mild parenchymal volume loss similar to previous. 4. No other acute findings.
[2023-06-01] MEDS: gadobenate dimeglumine 20 mL vial IV (11:43)
== END 2023-06-01 10:44 | disposition home or self-care (01) ==
LOC: RAD 10:43
PROVIDERS: PCP Registered Nurse; Visit Provider Psychiatry & Neurology Neurology
DX: D32.0 Benign neoplasm of cerebral meninges (principal); R25.1 Tremor, unspecified; R51.9 Headache, unspecified
CPT/HCPCS: 70544; 70553; A9577

== ENCOUNTER → 2023-07-24 12:46 | Outpatient (BNVA) | payer MEDICARE, BC, SELFPAY | PROVIDERS: PCP Registered Nurse; Visit Provider Psychiatry & Neurology Neurology | DX: R25.1 Tremor, unspecified (principal); D32.0 Benign neoplasm of cerebral meninges; G50.0 Trigeminal neuralgia | CPT/HCPCS: 36415; 85651; 86140; 86160; 86162; 86235; 86255; 86376; 86431; 99212 ==

== ENCOUNTER → 2023-08-15 14:50 | Outpatient (BNVA) | payer MEDICARE, BC, SELFPAY | PROVIDERS: PCP Registered Nurse; Visit Provider Registered Nurse | DX: E07.9 Disorder of thyroid, unspecified (principal); R25.1 Tremor, unspecified | CPT/HCPCS: 84439; 84443 ==

== ENCOUNTER 2023-09-18 13:10 | Outpatient (CLI) | payer MEDICARE, BC, SELFPAY ==
--- NOTE | 2023-09-18 13:30 | XR_ITS ---
WS: [email or web address] SCREENING DEXA SCAN [facility] CLINICAL INFORMATION: M81.0 - Age-related osteoporosis without current patholog... COMPARISON: None. FINDINGS: The L1-L4 bone mineral density measures 1.089 g/cm2. This corresponds to a T score score of -0.8 and Z score of 0.5. Left femoral neck bone mineral density measures 0.918 g/cm2. This corresponds to a T score of -0.7 an d Z score of 0.3. Right femoral neck bone mineral density measures 1.008 g/cm2. This corresponds to a T score 0.0of and Z score of 1.0. Mean femoral neck bone mineral density measures 0.963 g/cm2. This corresponds to a T score of -0.4 an d Z score of 0.7. XR/XR DEXA axial skeleton* [id number] IMPRESSION: Normal bone mineralization. Patient's FRAX calculated 10 year probability for major osteoporotic fracture i s 8.8% and osteoporotic hip fracture is 0.9%.
== END 2023-09-18 13:11 | disposition home or self-care (01) ==
LOC: RAD 13:10
PROVIDERS: PCP Registered Nurse; Visit Provider Registered Nurse
DX: M81.0 Age-related osteoporosis without current pathological fracture (principal)
CPT/HCPCS: 77080; 80053; 80061; 85025

== ENCOUNTER → 2023-10-04 13:36 | Outpatient (BNVA) | payer MEDICARE, BC, SELFPAY | PROVIDERS: PCP Registered Nurse; Referring Provider Psychiatry & Neurology Neurology; Visit Provider Internal Medicine | DX: F41.8 Other specified anxiety disorders (principal); Z71.3 Dietary counseling and surveillance; Z71.82 Exercise counseling; E66.9 Obesity, unspecified; Z13.6 Encounter for screening for cardiovascular disorders; E78.00 Pure hypercholesterolemia, unspecified; G50.0 Trigeminal neuralgia; E06.3 Autoimmune thyroiditis; R79.89 Other specified abnormal findings of blood chemistry; Z68.31 Body mass index [BMI] 31.0-31.9, adult | CPT/HCPCS: 82533; 84305; 84439; 84443; 84480; 99204 ==

== ENCOUNTER 2023-10-29 11:47 | Outpatient (CLI) | payer MEDICARE, BC, SELFPAY ==
[2023-10-29 11:56] VITALS: BMI 30.9
--- NOTE | 2023-10-29 11:59 | ECG_ITS ---
[facility] Test Date: 2023-10-29 Pat Name: Jackie Shane Department: Room: Gender: Female Actuary: : 1955 Requested By: Derek Gomez Order Number: [id number] Douglass MD: Michael Isbell M.D. Interpretive Statements NAME OF STUDY: TREADMILL STRESS TEST INDICATION: [Shortness of breath on exertion] EXERCISE DATA: The patient was exercised by Lester protocol. Baseline heart rate was 81 beats per minute. Baseline blood pressure was 119/64 millimeters of mercury. Maximal predicted heart rate was 153 beats per minute. Maximum heart rate achieved was 155, which was 103]% of the maximum predicted heart rate. Maximum blood pressure was 195/56 millimeters of mercury. Total exercise time was 6 minutes. Maximum METs achieved was 7. The reason for ending the test was completion of protocol. The patient complained of shortness of breath during the stress test, which then resolved at the end of the test. ELECTROCARDIOGRAM: BASELINE: Showed sinus rhythm, normal axis, no significant ST-T changes at the baseline noted. [] EXERCISE: At the peak exercise level, [] No significant ST-T changes suggestive of ischemia noted. [] RECOVERY: During the recovery period, heart rate dropped appropriately. No significant ST-T changes in the recovery suggestive of ischemia noted. [] CONCLUSION: 1. Exercise capacity is good. 2. Heart rate response was appropriate 3. Blood pressure response was appropriate 4. Symptoms not suggestive of ischemia. 5. Stress test does not show evidence of ischemia Electronically Signed On 11-09-2023 14:08:14 CDT by Michael Isbell M.D. [id number]
[2023-10-29 12:46] VITALS: BP 126/84; PULSE 87
== END 2023-10-29 11:48 | disposition home or self-care (01) ==
PROVIDERS: PCP Registered Nurse; Visit Provider Registered Nurse
DX: R06.02 Shortness of breath (principal)
CPT/HCPCS: 93017

== ENCOUNTER → 2023-11-27 10:22 | Outpatient (BNVA) | payer MEDICARE, BC, SELFPAY | PROVIDERS: PCP Registered Nurse; Visit Provider Registered Nurse | DX: Z79.1 Long term (current) use of non-steroidal anti-inflammatories (NSAID) (principal) | CPT/HCPCS: 80053 ==

== ENCOUNTER → 2023-12-11 13:12 | Outpatient (BNVA) | payer MEDICARE, BC, SELFPAY | PROVIDERS: PCP Registered Nurse; Visit Provider Psychiatry & Neurology Neurology | DX: R25.1 Tremor, unspecified (principal); D32.0 Benign neoplasm of cerebral meninges; G50.0 Trigeminal neuralgia; M54.81 Occipital neuralgia; S16.1XXA Strain of muscle, fascia and tendon at neck level, initial encounter; X58.XXXA Exposure to other specified factors, initial encounter | CPT/HCPCS: 99212; 99214 ==

== ENCOUNTER 2024-01-10 11:27 | Outpatient (CLI) | payer MEDICARE, BC, SELFPAY ==
--- NOTE | 2024-01-10 11:45 | MR_ITS ---
WS: [email or web address] MRI CERVICAL SPINE with and without contrast HISTORY: M54.81 - Occipital neuralgia COMPARISON: None available. Technique: Multiplanar, multisequence noncontrast imaging of the cervical spine. Postcontrast imaging MultiHance 16 mL. Normal cervical alignment with no compression fracture or significant disc space narrowing. Signal within the cervical cord is normal. Visualized posterior fossa is unremarkable. Craniocervical junction, C1 and C2 relationship, odontoid process and soft tissues are normal. C2-C3: Normal. C3-C4: Normal. C4-C5: Small vertebral body osteophytes and mild facet arthritis. C5-C6: Normal. C6-C7: Small central disc protrusion. Mild facet arthritis. No stenosis. C7-T1: Tiny central disc protrusion. Minimal bilateral foraminal narrowing. Postcontrast imaging is negative for discitis or osteomyelitis. No mass is identified in the cervical spine. Reidentified is the intensely enhancing mass previously described in the RIGHT parasagittal occipital region consistent with a meningioma measuring 1.8 cm in length. MR/MR cervical spine wo/w [id number] IMPRESSION: 1. No significant central or foraminal disc protrusions. 2. No cord compression or edema. 3. Mild facet joint arthritis at C4-5 and C6-7. 4. Known, RIGHT occipital meningioma similar in size as 06/01/2023 MRI.
[2024-01-10] MEDS: gadobenate dimeglumine 20 mL vial 16 ML IV (12:15)
== END 2024-01-10 11:28 | disposition home or self-care (01) ==
PROVIDERS: PCP Registered Nurse; Visit Provider Psychiatry & Neurology Neurology
DX: M54.81 Occipital neuralgia (principal); M25.78 Osteophyte, vertebrae; M47.812 Spondylosis without myelopathy or radiculopathy, cervical region; M48.03 Spinal stenosis, cervicothoracic region; D32.9 Benign neoplasm of meninges, unspecified
CPT/HCPCS: 72156; A9577

== ENCOUNTER 2024-01-22 11:45 | Outpatient (CLI) | payer MEDICARE, BC, SELFPAY ==
--- NOTE | 2024-01-22 11:48 | MM_ITS ---
WS: [email or web address] DIAGNOSTIC LEFT DIGITAL TOMOSYNTHESIS MAMMOGRAPHY WITH CAD. HISTORY: Z85.3 - Personal history of malignant neoplasm of breast COMPARISON: 12/19/2022, 01/02/2022 Technique: CC, MLO and ML views. Breast composition: The breasts are heterogeneously dense, which may obscure small masses. Scattered asymmetries and calcifications. Coarse calcifications within each breast. No area of shadow ing or distortion. MM/MM diag LT tomosynthesis [id number] IMPRESSION: BI-RADS: 2 - Benign FOLLOW UP: 1 Year Follow-up
== END 2024-01-22 11:46 | disposition home or self-care (01) ==
LOC: RAD 11:46
PROVIDERS: PCP Registered Nurse; Visit Provider Registered Nurse
DX: Z85.3 Personal history of malignant neoplasm of breast (principal); R92.333 Mammographic heterogeneous density, bilateral breasts
CPT/HCPCS: 77061; 77062; G0279

== ENCOUNTER → 2024-03-03 08:54 | Outpatient (BNVA) | payer MEDICARE, BC, SELFPAY | PROVIDERS: PCP Registered Nurse; Visit Provider Nurse Practitioner Family | DX: D22.5 Melanocytic nevi of trunk (principal); L57.8 Other skin changes due to chronic exposure to nonionizing radiation; L81.4 Other melanin hyperpigmentation; D48.5 Neoplasm of uncertain behavior of skin; L57.0 Actinic keratosis | CPT/HCPCS: 11102; 17000; 99213 ==

== ENCOUNTER → 2024-09-08 10:57 | Outpatient (BNVA) | payer MEDICARE, BC, SELFPAY | PROVIDERS: PCP Registered Nurse; Visit Provider Registered Nurse | DX: I10 Essential (primary) hypertension (principal) | CPT/HCPCS: 80053; 80061; 85025 ==

== ENCOUNTER → 2024-12-24 07:48 | Outpatient (BNVA) | payer MEDICARE, BC, SELFPAY | PROVIDERS: PCP Registered Nurse; Visit Provider Student in an Organized Health Care Education/Training Program | DX: M67.431 Ganglion, right wrist (principal) | CPT/HCPCS: 73130; 99204 ==

== ENCOUNTER 2025-01-17 05:00 | Outpatient (CLI) | payer MEDICARE, BC, SELFPAY | END 2025-01-17 05:01 | disposition home or self-care (01) | LOC: SOT 02-04 15:14 | PROVIDERS: PCP Registered Nurse; Visit Provider Student in an Organized Health Care Education/Training Program | DX: Z46.89 Encounter for fitting and adjustment of other specified devices (principal); M67.441 Ganglion, right hand | CPT/HCPCS: 97760; L3925 ==

== ENCOUNTER 2025-01-23 06:36 | Day surgery (SDC) | payer MEDICARE, BC, SELFPAY ==
[2025-01-23] VITALS (9 sets, daily range): BP systolic 106–160; BP diastolic 73–95; PULSE 65–88; RESP 16–18; TEMP 36.2–36.5; O2SAT 94–98; BMI 30.2
--- NOTE | 2025-01-23 07:04 | W.PM.OPSUD ---
Surgery/Procedure H&P Update DATE OF PROCEDURE: January 23, 2025 DATE H&P PERFORMED: 12/24/24 H&P UPDATE INFORMATION: I have reviewed H&P completed within last 30 days, I have examined patient prior to procedure and No changes to prior documentation PREOP DIAGNOSIS: Right middle finger mass/cyst PRIMARY INDICATION FOR PROCEDURE: Right middle finger mass/cyst PLANNED PROCEDURE: Operation Date: 01/23/25 08:10 Proposed Procedures p RIGHT Middle Finger Excision Of Ganglion Cyst(Right) - Zane Harvey DO
[2025-01-23] MEDS: acetaminophen 1,000 MG/100 ML PIGGYBACK 400 MG IV (07:27)
--- NOTE | 2025-01-23 07:36 | ANES.PREANE2 ---
Pre-Anesthetic Assessment Height/Weight: Height 5 ft 2 in Weight 165 lb Temp Pulse Resp BP Pulse Ox O2 Del Method 97.1 F L 72 18 160/83 94 Room Air 01/23/25 07:17 01/23/25 07:17 01/23/25 07:17 01/23/25 07:17 01/23/25 07:17 01/23/25 07:17 Preop Diagnosis: Right middle finger mass/cyst Operation Date: 01/23/25 08:10 Proposed Procedures p RIGHT Middle Finger Excision Of Ganglion Cyst(Right) - Zane Viverosatt, DO Was Beta Marcelino taken within 24 hours: N/A Was Clonidine taken within 24 hours: N/A Last intake: Intake Last Liquid Date 01/22/25 Last Liquid Time 22:00 Last Solid Date 01/22/25 Last Solid Time 16:00 Social No alcohol and No tobacco Exam alert, oriented x 3, clear to auscultation bilaterally and regular rate & rhythm Airway Submandibular: within normal limits Cervical ROM: within normal limits Mallampati: Class IV Comments: Comments: Small mouth opening, oral thrush Anesthetic Plan ASA status: 2 Anesthesia: MAC Other: History of nausea/vomiting with anesthesia NPO since yesterday evening Patient struggles with GERD, no current symptoms Denies any cardiac or pulmonary issues Patient states that she has been using oral medication for thrush Small mouth opening noted Prior negative stress test in 2023 Plan for MAC anesthesia with local via surgeon Medications/Allergies Home Medications ?Medication ?Instructions ?Recorded ?Confirmed ?Last Taken ?Type sennosides 8.6 mg-docusate sodium 3 tab-cap PO QDAY PRN Constipation 04/14/19 01/22/25 01/21/25 History 50 mg capsule (Senna Plus) esomeprazole magnesium 20 mg 20 mg PO DAILY 01/12/20 01/22/25 01/23/25 04:00 History capsule,delayed release (Nexium) acetaminophen 650 mg 1,300 mg PO Q8H 11/27/23 01/22/25 01/23/25 04:00 History tablet,extended release (Tylenol Arthritis Pain) Customized Bra plus right #1 ea 02/21/24 12/24/24 Unknown Rx prosthesis fluticasone propionate 110 1 puff inhalation BID 30 days #12 05/20/24 01/22/25 01/22/25 Rx mcg/actuation HFA aerosol inhaler grams duloxetine 30 mg capsule,delayed 30 mg PO DAILY 90 days #90 caps 12/05/24 01/22/25 01/22/25 Rx release tramadol 50 mg tablet 50 mg PO TID PRN chronic pain 30 01/06/25 01/22/25 01/23/25 04:00 Rx days #60 tabs albuterol sulfate 90 mcg/actuation 1 puff inhalation BID 01/22/25 01/22/25 01/22/25 History aerosol inhaler buspirone 10 mg tablet 10 mg PO PRN 01/22/25 01/23/25 1 Month Ago History ~12/23/24 naproxen 500 mg tablet 500 mg PO BID 01/22/25 01/22/25 01/22/25 History pregabalin 75 mg capsule (Lyrica) 75 mg PO DAILY 01/22/25 01/22/25 01/22/25 History tizanidine 4 mg tablet 4 mg PO PRN PRN muscle spasticity 01/22/25 01/22/25 01/21/25 History cetirizine 5 mg tablet (Zyrtec) 5 mg PO DAILY 01/23/25 01/23/25 01/23/25 04:00 History famotidine 20 mg tablet (Pepcid) 20 mg PO DAILY 01/23/25 01/23/25 01/22/25 History melatonin 3 mg tablet 3 mg PO DAILY 01/23/25 01/23/25 01/22/25 History tramadol 50 mg tablet 50 mg PO Q6H PRN pain 5 days #20 01/23/25 Unknown Rx tabs Allergies Allergy/AdvReac Type Severity Reaction Status Date / Time Penicillins Allergy Mild swelling Verified 12/24/24 07:56 and rash Current Medications Generic Name Dose Route Start Last Admin Trade Name Freq PRN Reason Stop Dose Admin Sodium Chloride 1,000 mls @ 30 mls/hr 01/23/25 07:15 01/23/25 07:32 Sodium Chloride 0.9% IV 01/24/25 07:14 30 mls/hr .Q24H DIAMANTE Administration PFSH Anesthesia Medical History Diverticulosis Encounter for screening colonoscopy Nondiabetic gastroparesis Insomnia Depression with anxiety Encounter for long-term (current) use of NSAIDs Encounter for long-term use of opiate analgesic Chronic low back pain with sciatica Trigeminal neuralgia of left side of face GERD without esophagitis Surgical History S/P appendectomy S/P cholecystectomy S/P right mastectomy Social History Smoking and tobacco/nicotine status: never used tobacco/nicotine Second hand smoke exposure: Yes Alcohol intake: never Substance/Drug Use: never Adopted: No Caregiver/support person: No Lives independently: No Household members: spouse Marital status: Current occupational status: retired Sexually active: Yes Do you think of yourself as: Straight/Heterosexual Current gender identity: Female
[2025-01-23] MEDS: ROPivacaine 0.5% SDV 30 mL 150 MG INJECTION (08:01)
--- NOTE | 2025-01-23 08:44 | SUR.PHASEI ---
08:34 RECEIVED PT FROM OR STAFF. A+O X 3. DENIES ANY PAIN. AIRWAY PATENT. NSR ON MONITOR. WARM BLANKET APPLIED.
--- NOTE | 2025-01-23 08:58 | ANE.PACU2 ---
Inpatient post-anesthesia follow up: Airway intact: Yes Vital signs: Temperature 97.2 F Pulse Rate 65 Respiratory Rate 18 Blood Pressure 137/73 Pulse Oximetry 96 Oxygen Delivery Me thod Room Air Oxygen Flow Rate Fraction of Inspir ed Oxygen Hydration adequate: Yes Nausea and vomiting: No Pain level: 1 Mental status: Baseline
--- NOTE | 2025-01-23 09:36 | P.BOP_ITS ---
Date of Procedure: 01/23/2025 Surgeon: Zane Harvey DO Assembler Surgical Garment(s): None Procedure(s) performed: Right middle finger mass excision (1.3 cm x 1 cm x 1 cm) Findings of the procedure(s): Patient underwent procedure as planned without issues or complications taken to recovery in stable condition Estimated blood loss: 5 mL Specimen(s) removed: Right middle finger mass excised and sent for specimen Post-operative diagnosis: Right middle finger mass?suspect benign cartilaginous tumor
--- NOTE | 2025-01-23 09:36 | P.OP_ITS ---
Operative Report Date of procedure: January 23, 2025 Pre-op diagnosis: Right middle finger mass/cyst Post-op diagnosis: Right middle finger mass Post-op findings: See operative report narrative Procedure done: Right middle finger mass excision (1.3 cm x 1 cm x 1 cm) Specimens removed/disposition: Right middle finger mass excision sent for specimen Surgeon: Zane Harvey DO Anesthesia: MAC and Local Estimated blood loss: 5 mL 20 minutes IV fluids: 500 mL Complications: None Findings: See operative report narrative Condition: stable Disposition: same day Brief History: Patient seen and worked up in the outpatient setting for a right middle finger mass that on the radial aspect of the digit at the distal pulp which does have deformity of the nail plate. At this point in time we talked over treatment options as far as nonoperative operative mention through shared decision make sure to proceed with surgical invention for right middle finger mass/cyst excision. She understands Anzemet's procedure risk benefits complication alternatives surgery through shared decision making to proceed with surgical invention. All questions answered at this time. Consent reviewed and signed with patient in preoperative holding area. Procedure: Patient seen today in the preoperative unit and signed with patient. Correct extremity/digit was then subsequently marked patient seen by anesthesia was cleared for surgery was taken back to the operative suite kept on [facility] armboard applied to the right upper extremity underwent anesthesia per the anesthesia department once appropriate anesthetized the right upper extremity was then prepped and draped standard orthopedic fashion. Final timeout performed. Patient received appropriate preoperative antibiotics. This point in time a digital block was performed of the right middle finger. Once properly anesthetized a right middle finger finger turnicot was then placed A standard L incision was made centering over the mass over the radial aspect of the pulp with a middle finger at the distal tip and then a L-shaped was made over the DIP crease full-thickness flaps were then made and sharp scalpel incision was made directly over the mass and then utilized sharp scalpel incision mobilizing to its entirety around the mass this communicated directly into the sterile matrix causing the mass effect and deformity of the nail plate. This appeared to be some type of cartilaginous appearing tumor there was no cystic formation noted. At this point in time sharp scalpel incision and dissection scissors were used to dissect circumferentially around this this did extend all the way to the pulp volarly just off of the distal phalanx. I then utilized bipolar electrocautery to excise around the base of this mass and remove this to its entirety of 1.3 cm x 1 cm x 1 cm this was removed in its entirety and sent for specimen. This point in time finger turnicot was removed hemostasis was satisfactory with bipolar electrocautery thorough irrigation was performed of the incision and then subsequently closed with interrupted nylon sutures bulky soft dressing applied and a finger AlumaFoam splint applied with Woody wrap. Patient tolerated procedure well without issues or complications waken from anesthesia and taken to recovery in stable condition Disposition: Patient taken recovery in stable condition will maintain dressing per instructions understands appropriate discharge instructions and medications postoperatively will follow-up in the orthopedic office in 2 weeks patient understands and agrees with current plan. All questions answered.
== END 2025-01-23 09:33 | disposition home or self-care (01) ==
PROVIDERS: PCP Registered Nurse; Visit Provider Student in an Organized Health Care Education/Training Program
PROC: (CPT 26160; principal; 2025-01-23 08:00)
DX: R22.31 Localized swelling, mass and lump, right upper limb (principal); K21.9 Gastro-esophageal reflux disease without esophagitis; Z79.891 Long term (current) use of opiate analgesic
CPT/HCPCS: 26160; 88304; 88342; J0131; J1100; J1885; J2405; J2704; J2795; J3010; J3490; J7030; J9999

== ENCOUNTER 2025-02-04 10:49 | Outpatient (CLI) | payer MEDICARE, BC, SELFPAY ==
--- NOTE | 2025-02-04 11:00 | MM_ITS ---
WS: [id number] LEFT 3D TOMOSYNTHESIS DIGITAL MAMMOGRAPHY WITH CAD CLINICAL INFORMATION: Z85.3 - Personal history of malignant neoplasm of breast HISTORY: RIGHT mastectomy COMPARISON: 2023 TECHNIQUE: 3 views of the left breast were obtained. FINDINGS: The left breast is composed of heterogeneous fibroglandular density tissue, which can limit the detection of small underlying mass lesions. Scattered punctate and clustered calcifications appear stable. No suspicious focal mass, asymmetry, calcifications, or architectural distortion. No evidence of malignancy. MM/MM diag LT tomosynthesis [id number] IMPRESSION: DENSITY: The breasts are heterogeneously dense, which may obscure small masses. BI-RADS: 2 - Benign FOLLOW UP: 1 Year Follow-up Recommend return to annual diagnostic mammography.
== END 2025-02-04 10:50 | disposition home or self-care (01) ==
LOC: RAD 10:49
PROVIDERS: PCP Registered Nurse; Visit Provider Registered Nurse
DX: Z85.3 Personal history of malignant neoplasm of breast (principal); R92.333 Mammographic heterogeneous density, bilateral breasts; R92.323 Mammographic fibroglandular density, bilateral breasts; Z98.890 Other specified postprocedural states
CPT/HCPCS: 77061; 77063; 99024

== ENCOUNTER → 2025-02-17 09:49 | Outpatient (BNVA) | payer MEDICARE, BC, SELFPAY | PROVIDERS: PCP Registered Nurse; Visit Provider Student in an Organized Health Care Education/Training Program | DX: M72.0 Palmar fascial fibromatosis [Dupuytren] (principal) | CPT/HCPCS: 99024; 99213 ==